=== PATIENT | female | born 1955 | race Caucasian/White ===

== ENCOUNTER 2022-10-23 15:23 | Outpatient (CLI) | payer MEDICARE, BC, SELFPAY ==
--- NOTE | 2022-10-23 15:40 | CRLHL7_ITS ---
For Patients: As a result of the Century Cures Act, medical imaging exams and procedure reports are released immediately into your electronic medical record. You may view this report before your referring provider. If you have questions, please contact your health care provider. BILATERAL SCREENING MAMMOGRAM WITH COMPUTER-AIDED DETECTION AND TOMOSYNTHESIS TECHNIQUE: CC and MLO views were obtained. These mammographic images have been obtained using full-field digital technique. These mammographic images were interpreted with the benefit of computer-aided detection. Breast Tomosynthesis was used in this interpretation. COMPARISON FILM: 09/07/21, 08/22/20, 07/21/19. FINDINGS: The breasts are heterogeneously dense, which may obscure small masses IMPRESSION: There is no radiographic evidence for malignancy. ASSESSMENT: BI-RADS Category 2: Benign RECOMMENDATION: Routine screening mammogram in 1 year. A lay language report of this examination will be provided to the patient. Isaac Martinez M.D. Diagnostic Radiologist [email or web address] GIAN/nell camejo/Dictated by: Isaac Martinez MD @ 10/24/2022 9:46:00 AM (Electronically Signed)
== END 2022-10-23 15:24 | disposition home or self-care (01) ==
LOC: MAMMO 15:23
PROVIDERS: PCP Internal Medicine; Visit Provider Internal Medicine
DX: Z12.31 Encounter for screening mammogram for malignant neoplasm of breast (principal); R92.2 Inconclusive mammogram
CPT/HCPCS: 77063; 77067

== ENCOUNTER 2023-05-21 12:38 | Outpatient (CLI) | payer MEDICARE, BC, SELFPAY ==
[2023-05-21 13:49] VITALS: BP 156/74; PULSE 103; RESP 16
--- NOTE | 2023-05-21 16:06 | P.STN_ITS ---
Stress Test Note Date Date of test: 05/21/23 Providers Primary care provider: Perla Steele Stress test physician: Navid Domínguez Stress Test Note Stress test ordered: Stress Echo Indication for test: Chest pain Results discussion: * Patient is a very nice 68-year-old female presents for the above test after discussion the risks benefits and side effects she would like to proceed pretest cardiac stress test medical history form is reviewed. Pretest EKG shows normal sinus rhythm, ventricular rate is 80 blood pressure 164/90. Following standard George protocol exercised for a total time of 12 minutes 2nd, metabolic equivalent of 12.3 Mets with a maximum heart rate of 166 which is 126%, test is terminated because of fulfillment of protocol, she did not have any chest pain or shortness of breath. Very mild ST wave depression of 1 mm is noted inferiorly and laterally. Given the high workload this will need to be correlated with the follow-up echo results. Again she was symptom free. This may be a false positive Impression: Indeterminate electrographic portion of stress echo, patient exercised for high workload Follow up suggested: Await echo findings, clinical correlation will be needed with this. Patient left this testing facility in good condition
== END 2023-05-21 12:39 | disposition home or self-care (01) ==
LOC: STRESS 12:39
PROVIDERS: PCP Internal Medicine; Visit Provider Family Medicine
DX: R07.89 Other chest pain (principal)
CPT/HCPCS: 93016; 93325; 93351

== ENCOUNTER 2023-05-29 07:55 | Outpatient (CLI) | payer MEDICARE, BC, SELFPAY | END 2023-05-29 07:56 | disposition home or self-care (01) | LOC: NFLDREF 05-30 12:34 | PROVIDERS: PCP Internal Medicine; Referring Provider Internal Medicine; Visit Provider Internal Medicine | DX: Z13.6 Encounter for screening for cardiovascular disorders (principal) | CPT/HCPCS: 80061 ==

== ENCOUNTER 2023-05-30 12:44 | Outpatient (CLI) | payer MEDICARE, BC, SELFPAY ==
--- NOTE | 2023-05-30 14:21 | W.ANESCHARGE ---
Anesthesia Charges Start Date/Time Anesthesia Start Date: 05/30/23 Anesthesia Start Time: 13:40 Stop Date/Time Anesthesia Stop Date: 05/30/23 Anesthesia Stop Time: 14:19
== END 2023-05-30 12:45 | disposition home or self-care (01) ==
LOC: OP CLINIC 12:46
PROVIDERS: PCP Internal Medicine; Visit Provider Surgery
DX: Z12.11 Encounter for screening for malignant neoplasm of colon (principal); K63.5 Polyp of colon; K64.8 Other hemorrhoids; Z80.0 Family history of malignant neoplasm of digestive organs
CPT/HCPCS: 00811; 45385; 88305; J2405; J2704

== ENCOUNTER 2023-10-30 14:26 | Outpatient (CLI) | payer MEDICARE, BC, SELFPAY ==
--- NOTE | 2023-10-30 14:40 | MM_ITS ---
Patient: SUDHIR KAPLAN Facility:?[facility] Patient ID:?[id number] Site Patient ID:?[id number] Site :?[id number] Study:?XRay-Breast Bilateral 3D W/CAD-10/30/2023 2:50:27 PM Ordering Physician:Clemencia Miller Final Report: BILATERAL SCREENING MAMMOGRAM WITH COMPUTER-AIDED DETECTION AND TOMOSYNTHESIS TECHNIQUE: CC and MLO views were obtained. These mammographic images have been obtained using full-field digital technique. These mammographic images were interpreted with the benefit of computer-aided detection. Breast Tomosynthesis was used in this interpretation. COMPARISON FILM: 10/23/22, 09/07/21, 08/22/20. FINDINGS: There are scattered areas of fibroglandular density. IMPRESSION: There is no radiographic evidence for malignancy. ASSESSMENT: BI-RADS Category 1: Negative RECOMMENDATION: Routine screening mammogram in 1 year. A lay language report of this examination will be provided to the patient. Isaac Martinez M.D. Diagnostic Radiologist [email or web address] IGAN/sp R& Transcribed: 2:09 p.m. SP/Dictated by: Isaac Martinez MD @ 10/31/2023 9:19:00 AM Signed by:?Isaac Martinez MD @10/31/2023 3:10:45 PM (Electronic Signature)
--- NOTE | 2023-10-30 15:00 | XR_ITS ---
Patient: SUDHIR KAPLAN Facility:?[facility] Patient ID:?[id number] Site Patient ID:?[id number]. Site :?[id number] Study:?DEXA-Bone Density -10/30/2023 3:13:25 PM Ordering Physician:DAVID OCHOA Final Report: DXA BONE MINERAL DENSITY STUDY Reason for exam: Breast cancer screening. Asymptomatic menopausal state. Current height (in): 62. Weight (lb): 114. Menopause age: 52. Ethnicity: White. 1. Have you had a previous hip or vertebral fracture? No. 2. Have you had any fractures during your adult life which did not result from significant trauma (e.g., auto accident)? No. 3. Did either of your parents have a hip fracture? No. 4. Do you smoke? No. 5. Have you ever taken Glucocorticoids? No. 6. Do you have rheumatoid arthritis? No. 7. Do you have secondary osteoporosis? No. 8. Do you drink 3 or more alcoholic drinks per day? No. 9. Are you being treated for osteoporosis? No. 10. Have you ever taken any of the following medications: Actonel, Evista, Fosamax, Miacalcin, Reclast, Boniva, Forteo, HRT (i.e., estrogen/hormone therapy), Protelos, Prolia, Vitamin D, Calcium, other ? please specify. ANSWER: No. 11. Do you have any of the following medical conditions: Anorexia or bulimia, asthma or emphysema, end stage renal disease, hyperparathyroidism, any seizure disorders, cancer, inflammatory bowel diseases, hysterectomy, other ? please specify. ANSWER: No. 12. What was your maximum height (inches)? 62. 13. Do you perform weight bearing exercise regularly? No. 14. Do you regularly consume dairy products? Yes. 15. Do you drink caffeinated beverages? Yes. 16. At what age did your period start? 17. 17. Are you premenopausal? No. 18. How many full-term pregnancies have you had? 2. 19. Have you ever missed your period for more than 6 months in a row (not including or menopause)? No. TECHNIQUE: Bone mineral density study was performed using the [employer]. FINDINGS: The results of the study expressed as bone mineral density (BMD) are as follows: Lumbar spine L1 to L4: BMD: 0.718 g/cm2. T-score: -3.0. Z-score: -1.1 Neck Left: BMD: 0.597 g/cm2. T-score: -2.3. Z-score: -0.7 Right: BMD: 0.571 g/cm2. T-score: -2.5. Z-score: -0.9 Total Left: BMD: 0.721 g/cm2. T-score: -1.8. Z-score: -0.5 Right: BMD: 0.705 g/cm2. T-score: -1.9. Z-score: -0.6 IMPRESSION: Osteoporosis. Isaac Martinez M.D. Diagnostic Radiologist [email or web address] GIAN/nell D& Transcribed: 6:07 p.mBetito camejo/Dictated by: Isaac Martinez MD @ 10/31/2023 11:12:00 AM Signed by:?Isaac Martinez MD @11/01/2023 5:35:57 AM (Electronic Signature)
== END 2023-10-30 14:27 | disposition home or self-care (01) ==
LOC: MAMMO 14:27
PROVIDERS: PCP Internal Medicine; Visit Provider Obstetrics & Gynecology
DX: Z12.31 Encounter for screening mammogram for malignant neoplasm of breast (principal); Z13.820 Encounter for screening for osteoporosis; Z78.0 Asymptomatic menopausal state; M81.0 Age-related osteoporosis without current pathological fracture
CPT/HCPCS: 77063; 77067; 77080

== ENCOUNTER 2024-10-22 10:14 | Outpatient (CLI) | payer MEDICARE, BC, SELFPAY | END 2024-10-22 10:15 | disposition home or self-care (01) | LOC: NFLDREF 10:15 | PROVIDERS: PCP Internal Medicine; Visit Provider Internal Medicine | DX: M81.0 Age-related osteoporosis without current pathological fracture (principal) | CPT/HCPCS: 80048; 82306 ==

== ENCOUNTER 2024-11-19 10:13 | Outpatient (CLI) | payer MEDICARE, BC, SELFPAY ==
--- NOTE | 2024-11-19 10:30 | CRLHL7_ITS ---
For Patients: As a result of the Century Cures Act, medical imaging exams and procedure reports are released immediately into your electronic medical record. You may view this report before your referring provider. If you have questions, please contact your health care provider. DXA BONE MINERAL DENSITY STUDY Current height (in): 62. Weight (lb): 111. Menopause age: 52. Ethnicity: White. 1. Have you had a previous hip or vertebral fracture? No. 2. Have you had any fractures during your adult life which did not result from significant trauma (e.g., auto accident)? No. 3. Did either of your parents have a hip fracture? No. 4. Do you smoke? No. 5. Have you ever taken Glucocorticoids? No. 6. Do you have rheumatoid arthritis? No. 7. Do you have secondary osteoporosis? No. 8. Do you drink 3 or more alcoholic drinks per day? No. 9. Are you being treated for osteoporosis? No. 10. Have you ever taken any of the following medications: Actonel, Evista, Fosamax, Miacalcin, Reclast, Boniva, Forteo, HRT (i.e. estrogen/hormone therapy), Protelos, Prolia, Vitamin D, Calcium, other ??? please specify. ANSWER: Yes, Vitamin D, and Calcium. 11. Do you have any of the following medical conditions: Anorexia or bulimia, asthma or emphysema, end stage renal disease, hyperparathyroidism, any seizure disorders, cancer, inflammatory bowel diseases, hysterectomy, other ??? please specify. ANSWER: No. 12. What was your maximum height (inches)? 62. 13. Do you perform weight bearing exercise regularly? Yes. 14. Do you regularly consume dairy products? Yes. 15. Do you drink caffeinated beverages? Yes. 16. At what age did your period start? 17. 17. Are you premenopausal? No. 18. How many full term pregnancies have you had? 2. 19. Have you ever missed your period for more than 6 months in a row (not including or menopause)? No. TECHNIQUE: Bone mineral density study was performed using the [employer]. FINDINGS: The results of the study expressed as bone mineral density (BMD) are as follows: Lumbar spine L1 to L4: BMD: 0.711 g/cm2. T-score: -3.1. Z-score: -1.1. Neck Left: BMD: 0.569 g/cm2. T-score: -2.5. Z-score: -0.9. Right: BMD: 0.578 g/cm2. T-score: -2.4. Z-score: -0.8 . Total Left: BMD: 0.733 g/cm2. T-score: -1.7. Z-score: -0.3. Right: BMD: 0.759 g/cm2. T-score: -1.5. Z-score: -0.1. IMPRESSION: Osteoporosis. COMPARISON: Compared with scan of 10/30/2023, the bone mineral density has decreased by 0.9 percent at the spine and increased by 4.6 percent at the hip. Isaac Martinez M.D. Diagnostic Radiologist [email or web address] GIAN/diego DW/Dictated by: Isaac Martinez MD @ 11/23/2024 9:07:00 AM (Electronically Signed)
--- NOTE | 2024-11-19 11:05 | CRLHL7_ITS ---
For Patients: As a result of the Century Cures Act, medical imaging exams and procedure reports are released immediately into your electronic medical record. You may view this report before your referring provider. If you have questions, please contact your health care provider. INDICATION: BILATERAL SCREENING MAMMOGRAM, ASYMPTOMATIC 69 Y/O FEMALE COMPARISON: 10/30/2023, 10/23/2022, 09/07/2021 TECHNIQUE: Digital mammogram in CC and MLO projections including computer-aided detection (CAD) and tomosynthesis. BREAST COMPOSITION: The breasts are heterogeneously dense, which may obscure small masses. FINDINGS: No suspicious findings. ASSESSMENT: BI-RADS 2 Benign RECOMMENDATION: Annual screening mammogram. A lay language report of this examination will be provided to the patient. Dictated by: Isaac Martinez MD @ 11/24/2024 12:55:52 (Electronically Signed)
== END 2024-11-19 10:14 | disposition home or self-care (01) ==
LOC: RAD 10:14
PROVIDERS: PCP Internal Medicine; Visit Provider Internal Medicine
DX: Z12.31 Encounter for screening mammogram for malignant neoplasm of breast (principal); R92.333 Mammographic heterogeneous density, bilateral breasts; M81.0 Age-related osteoporosis without current pathological fracture
CPT/HCPCS: 77063; 77067; 77080

== ENCOUNTER 2024-12-08 10:59 | Outpatient (CLI) | payer MEDICARE, BC, SELFPAY ==
[2024-12-11 20:26] LABS: HPV Source Cervix; HPV, High Risk by TMA Not Detected
[2024-12-15 14:06] LABS: Pap Test Reviewed by Path Done
== END 2024-12-08 11:00 | disposition home or self-care (01) ==
PROVIDERS: PCP Internal Medicine; Visit Provider Obstetrics & Gynecology
DX: Z12.4 Encounter for screening for malignant neoplasm of cervix (principal); Z11.51 Encounter for screening for human papillomavirus (HPV)
CPT/HCPCS: 87624; 87625; 88141; 88142